=== PATIENT | male | born 1935 | race Caucasian/White ===

== ENCOUNTER 2017-11-20 08:44 | Emergency (ER) | payer OTHER ==
[~2017-11-20] VITALS: Ht 165.1 cm; Wt 73.5 kg
[2017-11-20 08:50] VITALS: BP 145/77
--- NOTE | 2017-11-20 08:58 | NUR ---
PT TO ROOM 2, AMBULATED W/ STEADY GAIT ACCOMPANIED BY FAMILY MEMBER.
[2017-11-20] MEDS ORDERED: cefTRIAXone 1,000 MG in LIDOCAINE 1% ***ER ONLY *** 2.1 ML IM ONE (09:00)
[2017-11-20] MEDS ORDERED: KETOROLAC 60 MG/2 ML VIAL IM ONE (09:00)
[2017-11-20] MEDS ORDERED: LEVOFLOXACIN 500 MG TAB PO ONE (09:00)
--- NOTE | 2017-11-20 09:01 | NUR ---
82 YO M BIB FAMILY W/ C/O DYSURIA 04/25 X 1 WEEK. PT ALSO PRESENTS W/ HEMATURIA. PT A&O X4. GCS 15. CMS INTACT. PT DENIES N/V. DENIES FEVER/CHILLS AT THIS TIME. PT DENIES ABD PAIN. BOWEL SOUNDS ACTIVE X 4 QUADS. ABD SOFT, NON-TENDER. PT REPORTS SUPRAPUBIC PAIN AND PENILE DISCOMFORT. PT DX W/ PROSTATE CANCER 2 YRS AGO. PT AMBULATORY W/ STEADY GAIT. FAMILY AT BEDSIDE. ER MD RAMIREZ NOTIFIED OF PT STATUS. PT NEEDS MET AT THIS TIME. SAFETY PRECAUTIONS IN PLACE. WILL CONTINUE TO MONITOR.
--- NOTE | 2017-11-20 09:03 | NUR ---
PT AMBULATED TO ROOM 2 WITH STEADY GAIT. Addendum: 11/20/17 at 0909 by [email or web address] PT AMBULATED TO ROOM 2 WITH STEADY GAIT FROM RESTROOM.
[2017-11-20] MEDS ORDERED: cefTRIAXone 1,000 MG VIAL ONE (09:13)
[2017-11-20] MEDS ORDERED: LIDOCAINE MPF 1% - **ER/OR** 5 ML ONE (09:15)
[2017-11-20 09:57] VITALS: BP 145/77
--- NOTE | 2017-11-20 09:58 | NUR ---
Patient discharged with v/s stable. Written and verbal after care instructions given and explained. Patient alert, oriented and verbalized understanding of instructions. Ambulatory with steady gait. All questions addressed prior to discharge. ID band removed. Patient advised to follow up with PMD. Rx of Flomax & Ciprofloxacin given. Patient educated on indication of medication including possible reaction and side effects. Opportunity to ask questions provided and answered.
[2017-11-20 12:26] LABS: APPEARANCE,URINE CLOUDY (CLEAR); BILIRUBIN,URINE NEGATIVE (NEGATIVE); BLOOD, URINE 3+ (NEGATIVE); COLOR,URINE YELLOW (YELLOW); LEUKOCYTE ESTERASE ,URINE 1+ (NEGATIVE); NITRITE, URINE NEGATIVE (NEGATIVE); PH,URINE 6.5 (5.0-9.0); UGLUCOSE NEGATIVE (NEGATIVE)
[2017-11-20 12:27] LABS: RBC,URINE TOO NUMEROUS TO COUN /HPF (0-5); WBC,URINE 80-100 /HPF (0-5)
--- NOTE | 2017-11-23 15:03 | NUR ---
ADDENDUM: URINE CULTURE RESULTS:MORGANELLA MORGANII. REFERRED TO DR. CAMPVOERDE. CALLED PATIENT AND COMING IN TO RECIEVE ROCEPHINE INJECTION PER DR. CAMPOVERDE
== END 2017-11-20 09:58 | disposition home or self-care (01) ==
LOC: MED 08:44
DX: N30.11 Interstitial cystitis (chronic) with hematuria (principal); N40.1 Benign prostatic hyperplasia with lower urinary tract symptoms; Z87.891 Personal history of nicotine dependence; Z85.46 Personal history of malignant neoplasm of prostate
CPT/HCPCS: 81001; 87086; 96372; 99284; J0696; J1885; J2001; 87186

== ENCOUNTER 2017-11-24 15:46 | Emergency (ER) | payer OTHER ==
[~2017-11-24] VITALS: Ht 160 cm; Wt 73.9 kg
[2017-11-24 15:55] VITALS: BP 131/70
--- NOTE | 2017-11-24 16:14 | NUR ---
PT COMES TO ED FOR IM SHOT OF ROCEPHIN PER DR BELLA'S DC INSTRUCTIONS AFTER BEING DC'D YESTERDAY WIOTH UTI. DENIES FEVER. NAD NOTED/STATED AT THIS TIME
[2017-11-24] MEDS ORDERED: [UNRECOGNIZED DRUG - OTHER] IM ONE (16:15)
[2017-11-24] MEDS ORDERED: LIDOCAINE MPF 1% IM ONE (16:15)
[2017-11-24] MEDS ORDERED: CEFTRIAXONE IM ONE (16:15)
[2017-11-24 16:28] VITALS: BP 119/79
--- NOTE | 2017-11-24 16:29 | NUR ---
Patient discharged with v/s stable. Written and verbal after care instructions given and explained. Patient verbalized understanding. Ambulatory with steady gait. All questions addressed prior to discharge. Advised to follow up with PMD.
== END 2017-11-24 16:29 | disposition home or self-care (01) ==
LOC: MED 15:46
DX: N39.0 Urinary tract infection, site not specified (principal); Z85.46 Personal history of malignant neoplasm of prostate
CPT/HCPCS: 96372; 99283; J0696; J2001

== ENCOUNTER 2023-09-07 17:31 | Emergency (ER) | payer OTHER ==
[~2023-09-07] VITALS: Ht 158.8 cm; Wt 68.0 kg
[2023-09-07 17:52] VITALS: BP 162/91; PULSE 76; RESP 20; TEMP 98.3; O2SAT 98
[2023-09-07] MEDS ORDERED: LIDOCAINE/EPI 1% 1:100000 20 ML VIAL INJ ONE (19:46)
[2023-09-07] MEDS ORDERED: BACITRACIN OINT 500 UNITS/GM PKT TP ONE ×2 (19:46→21:31)
[2023-09-07] MEDS ORDERED: ACETAMINOPHEN EXTRA STRENGTH 500 MG TAB ONE (19:47)
[2023-09-07] MEDS: ACETAMINOPHEN EXTRA STRENGTH 500 MG TAB PO ONE (19:49)
[2023-09-07 20:10] VITALS: BP 158/90; PULSE 72; RESP 16; O2SAT 98
[2023-09-07] MEDS ORDERED: ACET-9800 PO (21:37)
[2023-09-07] MEDS ORDERED: BACI-418 TP (21:37)
[2023-09-07] MEDS: BACITRACIN OINT 500 UNITS/GM PKT TP ONE (21:46)
[2023-09-07] MEDS: LIDOCAINE MPF 1% 10 MG/ML VIAL INJ ONE (21:46)
== END 2023-09-07 21:48 | disposition home or self-care (01) ==
LOC: MED 17:31
DX: S51.812A Laceration without foreign body of left forearm, initial encounter (principal); R03.0 Elevated blood-pressure reading, without diagnosis of hypertension; Z79.899 Other long term (current) drug therapy; Z79.2 Long term (current) use of antibiotics; W26.8XXA Contact with other sharp object(s), not elsewhere classified, initial encounter; Y93.89 Activity, other specified; Y92.89 Other specified places as the place of occurrence of the external cause; Y99.8 Other external cause status
CPT/HCPCS: 12005; 73090; 99283; J2001